=== PATIENT | female | born 1960 | race Caucasian/White ===

== ENCOUNTER 2016-12-09 06:51 | Day surgery (SDC) | payer OTHER ==
--- NOTE | 2016-12-08 16:43 | HP ---
- Patient Scheduled date of Surgery: 12/09/16 Scheduled Surgical Procedure: Phacoemulsification and cataract extraction with PCIOL Affected Eye: Right Chief Complaint (Indication for surgery): Decreased vision affecting ADLs - Ocular History Other Eye History: Other (kendrick) Eye Medications: vigamox Previous Eye Surgery: none - Medical History Illnesses: None Current Medications: none Allergies/Adverse Reactions: Allergies Allergy/AdvReac Type Severity Reaction Status Date / Time No Known Allergies Allergy Verified 12/08/16 16:40 Ocular Examination - Best Corrected Visual Acuity Distance: Right eye: 20/400 Distance: Left eye: 20/200 - External/Slit Lamp Examination Abnormalities: normal - Intraocular Pressure Intraocular Pressure - Right eye: 16 Intraocular Pressure-Left eye: 16 - Lens Lens: 2+ ns 3-4+ psc - Vitreous/Retina Vitreous/Retina: c:d 0.3 m/v/p wnl - Special Examination M - Right eye: -0.75-0.50 x 85 M - Left eye: -0.50- 1.00 x 030 K - Right eye: 41/43 x 95 K - Left eye: 41.25/43 x 85 AL - Right eye: 23.44 AL - Left eye: 23.06 IOL bag: +22.5 hoya 251 IOL sulcus: +21.5 hoya 231 IOL AC: +19.0 d mta 4uo - Impression Impression: Cataract Right Eye, Other (and miosis) - Plan Plan: Phacoemulsification and cataract extraction - IOL Right eye (malaugan ring , trypan blue) Post-hospital care will be provided in office on: 12/10/16
--- NOTE | 2016-12-08 16:43 | HP ---
History & Physical Update - History History: No Change - Physical Physical: No Change - Assessment Assessment: No Change - Plan Plan: No Change
[~2016-12-09 06:51] MED LIST: ACETAMINOPHEN 325 MG TABLET (FP) PO PRN; CIPROFLOXACIN HCL 0.3% OPHTH 2.5ML BOTTLE OP SCH; DICLOFENAC SODIUM 0.1% OPHTHALMIC 2.5ML BOTTLE OP SCH; PHENYLEPHRINE 2.5% OPHTH SOLN 15 ML BOTTLE OP SCH; TOBRAMYCIN/DEXAMETHASONE OPHTH. OINTMENT 1 TUBE TP ONE; TROPICAMIDE 1% OPHTH SOLN 15 ML BOTTLE OP SCH
[2016-12-09 07:09] VITALS: BMI 30.2
[2016-12-09] MEDS ORDERED: TOBRAMYCIN/DEXAMETHASONE OPHTH. OINTMENT 1 TUBE ONE (07:13)
[2016-12-09] MEDS ORDERED: EPINEPHrine/PF 1 MG/1 ML (1:1,000) AMPULE ONE (07:14)
[2016-12-09] MEDS ORDERED: LIDOCAINE HCL 2% JELLY (5 ML/TUBE) ONE (07:14)
[2016-12-09] MEDS ORDERED: LIDOCAINE HCL/PF 1% SDV 5ML VIAL ONE (07:14)
[2016-12-09 07:21] VITALS: TEMP 98
[2016-12-09] MEDS ORDERED: TROPICAMIDE 1% OPHTH SOLN 15 ML BOTTLE ONE (07:24)
[2016-12-09] MEDS ORDERED: CIPROFLOXACIN 0.3% EYE DROPS 5 ML BOTTLE ONE (07:25)
[2016-12-09] MEDS ORDERED: PHENYLEPHRINE 2.5% OPHTH SOLN 15 ML BOTTLE ONE (07:25)
[2016-12-09] MEDS ORDERED: DICLOFENAC SODIUM 0.1% OPHTHALMIC 2.5ML BOTTLE ONE (07:25)
[2016-12-09] MEDS ORDERED: MIDAZOLAM HCL 2 MG/2 ML SINGLE DOSE VIAL ONE (08:24)
[2016-12-09] MEDS ORDERED: LIDOCAINE HCL 2% JELLY (5 ML/TUBE) TP ONE (08:25)
[2016-12-09] MEDS ORDERED: POVIDONE-IODINE 5% OPHTHALMIC PREP 30 ML SOLUTION OD ONE (08:49)
[2016-12-09] MEDS ORDERED: BSS (NA/CA/MG/K) BALANCED SALT SOLUTION OPHTH SOLN 15 ML BOTTLE OD ONE (08:57)
[2016-12-09] MEDS ORDERED: LIDOCAINE HCL 1% PRESERVATIVE FREE - 30ML VIAL IO ONE (08:57)
[2016-12-09] MEDS ORDERED: TRYPAN BLUE 0.5 ML DISP.SYRIN TP ONE (08:57)
[2016-12-09] MEDS ORDERED: CHONDROITIN SU A/HYALUR SOD 1 KIT IO ONE (08:57)
[2016-12-09] MEDS ORDERED: SODIUM CHLORIDE 0.9% P/F 10 ML VIAL IJ ONE (08:58)
[2016-12-09] MEDS ORDERED: EPINEPHrine/PF 1 MG/1 ML (1:1,000) AMPULE SQ ONE (09:09)
[2016-12-09] MEDS ORDERED: TOBRAMYCIN/DEXAMETHASONE OPHTH. OINTMENT 1 TUBE TP ONE (09:34)
--- NOTE | 2016-12-09 09:38 | OP ---
Ophthalmology Operative Note Pre-Operative Diagnosis: Cataract (and miosis) Affected Eye: Right Operation: Phacoemulsification and cataract extraction with PCIOL (using malayugan ring and trypan blue) Findings: cataract od and miosis Post-Operative Diagnosis: Same as Pre-op Coating Mixer: Cherie Anesthesiologist: Franklyn Thomas Anesthesia: Topical Specimens Removed: none Estimated blood loss: <1 cc Operative Report Dictated: No
--- NOTE | 2016-12-09 10:50 | OP ---
DATE OF OPERATION: 12/09/2016 PREOPERATIVE DIAGNOSIS: Posterior subcapsular cataract and miosis, right eye. POSTOPERATIVE DIAGNOSIS: Posterior subcapsular cataract and miosis, right eye. PROCEDURE: Phacoemulsification and cataract extraction with insertion of posterior chamber intraocular lens, right eye, using Malyugin ring and trypan blue. SURGEON: Khloe Rich MD SUPPLY COORDINATOR: None. ANESTHESIA: Topical. ANESTHESIOLOGIST: Franklyn Thomas CRNA OPERATIVE PROCEDURE: The patient received viscous lidocaine gel in the holding area to the right eye and was then brought to the operating room, gently sedated, prepped and draped in the usual sterile fashion so as to expose only the right eye. Ophthalmic Betadine was instilled into the inferior fornix, and lashes were taped out of the surgical field. An eyelid speculum was placed into the right eye. A paracentesis was made in superior clear cornea at the limbus. Next, 0.7 mL of nonpreserved lidocaine 1% was injected into the anterior chamber, and an air bubble was injected into the anterior chamber. Trypan blue was dripped on the anterior capsular edge. Viscoelastic material was then used to remove the trypan blue and also placed slightly under the iris. The main incision was created using a 2.5-mm keratome in the temporal cornea at the limbus. A Malyugin ring was then inserted and used to stretch the pupil. A continuous curvilinear capsulorrhexis was performed using a cystotome and Utrata forceps. Hydrodissection of the lens cortex was performed using BSS on a cannula until the nucleus was freely rotating. The phacoemulsification tip was inserted via the main wound and used to sculpt 2 perpendicular grooves into the lens nucleus. The nucleus was cracked into 4 quadrants using 2 instruments. Each quadrant was lifted out of the capsule into the iris plane and individually phacoemulsified. The remaining cortical material was then aspirated using irrigation and aspiration port. The capsular bag was inflated using Provisc, and a preloaded Hoya lens model 251, power +22.5 diopters was injected into the capsular bag and centered using a Sinskey hook. A Nilesh hook was then used to disinsert the Malyugin ring, and then it was removed from the eye using the Malyugin ring grocery supervisor. The residual Viscoelastic material was removed from the anterior chamber using irrigation and aspiration. The wound edges were hydrated using BSS. The wound was tested for leakage. There was a question of a leak, therefore one 10-0 nylon suture was placed across the wound. It was again tested and found to be watertight. Therefore, TobraDex ointment was placed in the eye, the speculum was removed from the eye, and the eyelid was closed. A sterile dressing and shield were placed over the eye, and the patient was transferred to recovery room in stable condition, told to follow up in 1 day. KHLOE RICH M.D. [id number]
[2016-12-09 11:01] VITALS: BP 117/58; PULSE 64
== END 2016-12-09 11:09 | disposition home or self-care (01) ==
LOC: JASU-SURG 06:51
PROVIDERS: ATTEND Ophthalmology
PROC: 08RJ3JZ Replacement of Right Lens with Synthetic Substitute, Percutaneous Approach (ICD-10-PCS; principal; 2016-12-09 08:30)
DX: H25.041 Posterior subcapsular polar age-related cataract, right eye (principal); H57.03 Miosis